=== PATIENT | female | born 2000 | race Caucasian/White ===

== ENCOUNTER 2024-10-31 18:10 | Emergency (ER) | payer BC, SELFPAY ==
--- OUTSIDE RECORDS SUMMARY | 2024-10-31 18:16 | XMS_ITS | Clinical Summary ---
Author Organization [facility] Address [address] [place] [address] Phone Care Team Providers Care Control Panel Builder Name Role Phone Audi Edwards MD Primary Care Provider [phone] Allergies No known active allergies Medications polyethylene glycol PO PACK Take 0.8 g/kg/day by mouth daily. Dissolve in 4-8 oz of liquid. Active ampicillin (PRINCIPEN) 500 MG Capsule 12/21/2018 Active Active Problems Problem Noted Date Diagnosed Date Vesicoureteral reflux 03/01/2012 Nocturnal enuresis 03/01/2012 Immunizations Immunization Administration Dates Next Due Influenza Vaccine greater than 3 yrs 03/31/2013 Family History Medical History Relation Name Comments Kidney Stones Father Heart Attack Maternal Grandfather Hypertension Maternal Grandfather Kidney Stones Paternal Grandfather Nocturnal Enuresis Neg Hx Renal Failure Neg Hx Urinary Tract Infections Neg Hx Relation Name Status Comments Father Alive Maternal Grandfather Alive Maternal Grandmother Alive Mother Alive Paternal Grandfather Alive Paternal Grandmother Alive Social History Tobacco Use Types Packs/Day Years Used Date Smoking Tobacco: Never Smokeless Tobacco: Never Tobacco Cessation:Counseling Given: No Alcohol Use Standard Drinks/Week Comments Not Asked 0 (1 standard drink = 0.6 oz pur e alcohol) Comments No Sex and Gender Information Value Date Recorded Sex Assigned at Not on file 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 Gender Identity Not on file Sexual Orientation Not on file Last Filed Vital Signs Vital Sign Reading Time Taken Comments Blood Pressure 110/71 01/04/2019 4:40 PM CDT Pulse 66 01/04/2019 4:40 PM CDT Temperature 36.8 C (98.2 F) 01/04/2019 4:40 PM CDT Respiratory Rate 18 01/04/2019 4:40 PM CDT Oxygen Saturation 99% 01/04/2019 4:40 PM CDT Inhaled Oxygen Concentration - - Weight 63.5 kg (140 lb) 01/04/2019 4:40 PM CDT Height 162.6 cm (5' 4) 04/05/2017 9:25 AM DETENTION SERGEANT Body Mass Index - - Plan of Treatment Health Maintenance Due Date Last Done Comments Hepatitis C Virus (HCV) Screening 2002 TdaP Immunization 2002 Meningococcal B Immunization (1 of 2 - Standard) 2018 Hepatitis B Immunization (1 of 3 - 19+ 3-dose series) 2021 Pap Smear 09/21/2023 Influenza Immunization (#1) 12/27/202308/2012, 04/01/2012 SARS-COV-2 Immunization ( - 2023- season) 2023 12/11/2020, 11/20/2020 Respiratory Syncytial Virus (RSV) Immunization (Adult) (1 - 1-dose 75+ series) 2077 Measles Mumps Rubella (MMR) Immunization Discontinued 04/14/2012 Human Papillomavirus (HPV) Immunization Completed 10/23/2017, 11/13/2016 Meningococcal Immunization (ACWY) Completed 12/07/2018 Pneumococcal Immunization Combined Aged Out No longer eligible based on patient's age to complete this topic Rotavirus Immunization Aged Out No lo nger eligible based on patient's age to complete this topic Insurance Care Teams Control Panel Builder Relationship Specialty Start Date End Date Audi Edwards MD [address] [place] [address] PCP - General Pediatrics 05/19/13
--- OUTSIDE RECORDS SUMMARY | 2024-10-31 18:16 | XMS_ITS | Continuity of Care Document ---
Author Organization [facility] Address [address] [place] [address] Phone Care Team Providers Care Client Technologies Analyst Name Role Phone Tomasz Crump OD Unavailable Unavailable Allergies, Adverse Reactions, Alerts Substance Reaction Status Criticality No Known Drug Allergies Active No I nformation Medications Medication Instructions Dosage Effective Dates (start - stop) Status Comments MULTIVITAMINS WITH IRON (unknown strength) Not Available - No Longer Active Procedures Procedure Date EYE EXAM, EXISTING PATIENT VISION REFRACTION NO UPDATE EYE EXAM, EXISTING PATIENT VISION REFRACTION NO UPDATE EYE EXAM, EXISTING PATIENT VISION REFRACTION OPTIONAL UPDATE EYE EXAM, NEW PATIENT VISION REFRACTION NO UPDATE Advance Directives Directive Yes / No Effective Date File Name No Information Encounters Encounter Description Practice Location Reason(s) For Visit Diagnoses Date Provider Providers Copied on Encounter [facility], [facility], [address] [place] [address], [id number], [place] tel:[phone] [facility] no problems with vision and no complaints (chief complaint) Encounter for examination of eyes and vision without abnormal findings Theron Tolbert. [address] [place] [address], [id number], . tel:[phone] [facility], [address] [place] [address], [id number], tel:[phone] [facility] Examination of eyes and vision Theron Tolbert. [address] [place] [address], [id number], . tel:[phone] [facility], [address] [place] [address], [id number], tel:[phone] [facility] Examination of eyes and vision Theron Tolbert. [address] [place] [address], [id number], . tel:[phone] [facility], [address] [place] [address], [id number], tel:[phone] [facility] No Information Theron Tolbert. [address] [place] [address], [id number], [place]. tel:[phone], [id number], tel:[phone] [facility] No Information Theron Tolbert. [address] [place] [address], [id number], . tel:[phone] Family History Family Member Type Diagnosis Age At Onset Problem (finding) No Family hist ory of Macular Degeneration Problem (finding) No Family history of Gl aucoma Problem (finding) No Family history of Re spiratory Disease Grandfather Problem (finding) cataract Grandfather Problem (finding) Heart Disease grandparents Problem (finding) HBP Problem (finding) No Family history of Re tinal Disorders Problem (finding) No Family history of St roke Grandfather Problem (finding) Diabetes mellitus Problem (finding) No Family history of As thma Grandmother Problem (finding) Arthritis Problem (finding) No Family history of St rabismus Payers Payer name Insurance type Covered alliance party ID Usha cespedes(s) No Information Social History Type Description Quantity Date Captured Comments Alcohol Use Details Unknown Caffeine Use Details Unknown Tobacco Use Status Never smoked tobacco 2016 Smoking Status Never smoker Non-Smoking Tobacco Use Details : No Details Available : No Details Available Sex Female Chief Complaint And Reason For Visit From encounter dated '10/07/2016 10:00'. no problems with vision and no complaints (chief complaint). Description: The 16 Year old female presents for evaluation of no problems with vision and no complaints in the right eye and left eye since last exam. It affects both near and far vision. It occurs constantly. The condition is stable. The patient denies pain or discomfort. Pt does not use any eye gtts or eye medications. Reason For Referral Reason For Referral No Information History Of Present Illness Encounter Date Complaint History Of Prese nt Illness no problems with vis ion and no complaints The 16 Year old female presents for evaluation of no problems with vision and no complaints in the right eye and left eye since last exam. It affects both near and far vision. It occurs constantly. The condition is stable. The patient denies pain or discomfort. Pt does not use any eye gtts or eye medications. Functional Status Date Functional Assessmen t No Information Instructions Date Instruction Additional Infor edna Return in 2 years wi th [facility] for Refract T & D. Related to Encounter for examination of eyes and vision without abnormal findings Impression/Plan - VA good, no need for gls Rx. Eyes look healthy and OU work well together. Pt doing well. Related to Encounter for examination of eyes and vision without abnormal findings Follow up - Return i n 2 years with [facility] for Refract T & D. Related to Encounter for examination of eyes and vision without abnormal findings - Return in 2 years with [facility] for Ref T & D. Related to Healthy Eyes Healthy Eyes OU. Con dition: established, stable. - Eyes look healthy. Vision is good. No need for gls rx today. Continue with yearly eye exams or TCI sooner if having problems. Educational materials provided:none needed. Related to Healthy Eyes - Return in 2 years with [facility] for Ref T & D. Related to Healthy Eyes Healthy Eyes OU. Con dition: established, stable. - OU healthy. No need for glasses. Related to Healthy Eyes Assessments Type Assessment Date assessment Encounter for examin ation of eyes and vision without abnormal findings impression Encounter for examin ation of eyes and vision without abnormal findings: Z01.00. OU. Status: Chronic. Patient Care Teams Name Effective Dates (start - stop) Status Members No Information
--- OUTSIDE RECORDS SUMMARY | 2024-10-31 18:16 | XMS_ITS | Patient Health Record ---
Author Organization [facility] Address [address] [place] [address] Care Team Providers Care Case Checker Name Role Phone MATIAS HARPER Unavailable [phone] Allergies No Known Allergies Reason For Referral No Information Medications Medication SIG (Take, Route, Fr equency, Duration) Notes Start Date End Date Status Tretinoin 0.025 % apply to the affecte d area(s) by topical route once daily at bedtime External 1 Active Plan Of Treatment No Information Insurance Providers Payer Name Payer Address Payer Phone Subscriber Number Group Number Insured Name Patient Relationship to Insured Coverage Start Date Coverage End Date [employer] [address] [place] [address] [phone] Ally Arciniega Self - patient is the insured [facility] [address] [place] [address] [id number] Ally Arciniega Self - patient is the insured Medical (General) History Medical History History ICD Code Acne; Ureteral reflux: as a baby - resolved;
[2024-10-31 18:20] VITALS: BP 133/80; PULSE 85; RESP 16; TEMP 36.4; O2SAT 100
[2024-10-31 18:27] LABS: EDUAAPPEAR Clear; EDUABILI Negative (Negative); EDUABLOOD Negative (Negative); EDUACOLOR1 Yellow; EDUAGLUCOSE Negative (Negative); EDUAKETONE Negative (Negative); EDUALEUKO Trace (Negative); EDUANITRATE Negative (Negative); EDUAPH 7.0; EDUAPROTEIN Negative (Negative); EDUASPGRAVITY 1.015; EDUAUROBILI 0.2
[2024-10-31 18:28] LABS: BEDSIDEPREGUCG Negative (Negative)
--- NOTE | 2024-10-31 18:28 | ED_ITS ---
HPI - General Adult General Chief complaint: Urogenital-Female Stated complaint: UTI History of Present Illness HPI narrative: Ally Arciniega is a 24 y/o female who presents today with complaints of one day of urinary symptoms of dysuria/urgency and frequency. Denies fever/chills/flank macie n/ abdominal pain Related Data Home Medications ?Medication ?Instructions ?Recorded ?Confirmed ?Last Taken ?Type drospirenone 3 mg-ethinyl tablet 10/31/24 Unknown History estradiol 0.02 mg tablet Allergies Allergy/AdvReac Type Severity Reaction Status Date / Time No Known Allergies Allergy Verified 10/31/24 18:26 Review of Systems Review of Systems: All systems reviewed & are unremarkable except as noted in HPI and below Exam Narrative: GENERAL: Well-appearing, well-nourished, and in no acute distress. HEAD: Normocephalic, atraumatic. EYES: PERRLA and EOMI. ENT: Nares clear, no rhinorrhea or epistaxis. Mucous membranes moist. Oropharynx without tonsillar hypertrophy exudate or other lesions. NECK: Supple. No adenopathy or masses. No carotid bruits or JVD CHEST: Clear to auscultation. No respiratory distress. No wheezes rales or rhonchi HEART: Regular rate and rhythm. Normal peripheral pulses. ABDOMEN: Soft, nontender, nondistended, normal active bowel sounds. EXTREMITIES: Normal range of motion. No edema. SKIN: Warm, dry, no rash. NEURO: No focal deficits. Alert and oriented x3. PSYCH: Normal mood and affect. Course Course Level of Care: Express Care Visit Vital Signs Vital signs: Vital Signs Temperature 36.4 C 10/31/24 18:20 Pulse Rate 85 10/31/24 18:20 Respiratory Rate 16 10/31/24 18:20 Blood Pressure 133/80 10/31/24 18:20 Pulse Oximetry 100 10/31/24 18:20 Oxygen Delivery Room Air 10/31/24 18:20 Temperature 36.4 C 10/31/24 18:20 Pulse Rate 85 10/31/24 18:20 Respiratory Rate 16 10/31/24 18:20 Blood Pressure 133/80 10/31/24 18:20 Pulse Oximetry 100 10/31/24 18:20 Oxygen Delivery Room Air 10/31/24 18:20 Medical Decision Making [facility] Narrative Medical decision making narrative: 24 year-old patient presenting with urinary symptoms consistent with UTI. Urinalysis is obtained and positive for signs of infection. Urine culture sent. test is negative. Patient started on Macrobid and strongly advised to return for any increasing or worsening pain, fevers or vomiting. They expressed understanding of instructions and is discharged in stable condition. Procedures: Pulse oximetry interpretation - not hypoxic. Review of medical records. DISPOSITION: Discharged home in stable condition. IMPRESSION: 1. Acute uncomplicated cystitis. Medical Records Medical records reviewed: Yes I reviewed the external patient's medical records. Vital Signs Vital Signs: Vital Signs Temperature 36.4 C 10/31/24 18:20 Pulse Rate 85 10/31/24 18:20 Respiratory Rate 16 10/31/24 18:20 Blood Pressure 133/80 10/31/24 18:20 Pulse Oximetry 100 10/31/24 18:20 Oxygen Delivery Room Air 10/31/24 18:20 Temperature 36.4 C 10/31/24 18:20 Pulse Rate 85 10/31/24 18:20 Respiratory Rate 16 10/31/24 18:20 Blood Pressure 133/80 10/31/24 18:20 Pulse Oximetry 100 10/31/24 18:20 Oxygen Delivery Room Air 10/31/24 18:20 Vitals reviewed by me Lab Data Lab results reviewed: Yes I reviewed the patient's lab results. Labs: Lab Results 10/31/24 Range/Units 18:25 POC Urine Color Yellow POC Urine Clarity Clear POC Urine pH 7.0 POC Ur Specif Foxworth 1.015 POC Urine Protein Negative (Negative) POC Ur Glucose (UA) Negative (Negative) POC Urine Ketones Negative (Negative) POC Urine Blood Negative (Negative) POC Urine Nitrite Negative (Negative) POC Urine Bilirubin Negative (Negative) POC Urine Urobilinogen 0.2 POC U Leukocyte Esteras Trace (Negative) POC Urine HCG, Qual Negative (Negative) Discharge Plan Discharge Clinical Impression: Urinary tract infection Qualifiers: Urinary tract infection type: acute cystitis Hematuria presence: without hem aturia Qualified Code(s): N30.00 - Acute cystitis without hematuria Patient Disposition: Home Condition: Stable Instructions: Antibiotic Form Additional Instructions: Start taking the antibiotic as ordered push hydration, drinking plenty of fluids Tylenol or motrin for pain Follow up with your PCP in 1 week to ensure you are improved Patient Language: Frisian Prescriptions: New nitrofurantoin monohyd/m-cryst [Macrobid] 100 mg capsule 100 mg PO Q12H 5 Days Qty: 10 0RF Rx Instructions: must administer with a meal/food No Action drospirenone-ethinyl estradiol 3-0.02 mg tablet Follow-up/Referrals: PHYSICIAN,DIE PRESSER [Primary Care Provider] - Time of Disposition: 18:29
== END 2024-10-31 18:30 | disposition home or self-care (01) ==
PROVIDERS: Emergency Provider Nurse Practitioner Family
DX: N30.00 Acute cystitis without hematuria (principal)
CPT/HCPCS: 81003; 81025; 87086; 99203; G0463

== ENCOUNTER 2025-02-05 17:02 | Emergency (ER) | payer BC, SELFPAY ==
[2025-02-05 17:14] VITALS: BP 121/77; PULSE 104; RESP 18; TEMP 37.6; O2SAT 100
--- NOTE | 2025-02-05 17:25 | ED.URI ---
HPI - URI/Sore Throat General Chief Complaint: Upper Respiratory Infection Stated Complaint: Sore Throat/Congestion Time Seen by Provider: 02/05/25 17:25 Source: patient and RN notes reviewed Mode of arrival: ambulatory Limitations: no limitations History of Present Illness HPI Narrative: 24-year-old female presents with concern for sore throat, nasal congestion, rhinorrhea, cough that started last night. She reports she has flu vaccine last week. Reports low-grade fever, body aches and chills. She has been alternating Tylenol and ibuprofen. MD elicited complaint: sore throat and nasal congestion Related Data Home Medications ?Medication ?Instructions ?Recorded ?Confirmed ?Last Taken ?Type drospirenone 3 mg-ethinyl tablet 10/31/24 Unknown History estradiol 0.02 mg tablet Allergies Allergy/AdvReac Type Severity Reaction Status Date / Time No Known Allergies Allergy Verified 02/05/25 17:14 Review of Systems Review of Systems: CONSTITUTIONAL: Reports malaise, chills, or fever. EYES: Denies visual changes, redness, or discharge. ENT: Reports rhinorrhea, congestion, and sore throat. CARDIOVASCULAR: Denies chest pain, palpitations, or edema. RESPIRATORY: Reports cough. Denies dyspnea. GASTROINTESTINAL: Denies abdominal pain, nausea, vomiting, diarrhea SKIN: Denies rash or itching. MUSCULOSKELETAL: Reports myalgia. NEUROLOGIC: Denies headache. All systems reviewed & are unremarkable except as noted in HPI and below PMFSH Comments At time of signature, agree with nursing past medical, surgical, social and family history. There is no relevant family history pertinent to the presenting complaint Exam Narrative: GENERAL: Nontoxic-appearing, well-nourished, and in no acute distress. HEAD: Normocephalic EYES: PERRLA, conjunctivae clear ENT: Nares clear. Mucous membranes moist. TM pearly davenport with dull light reflex bilaterally; no tragal tenderness. Oropharynx not erythematous without lesions. Tonsils not enlarged and without exudate, no drooling, no hoarseness, no trismus, uvula midline. NECK: Supple. No lymphadenopathy CHEST: Clear to auscultation, breath sounds equal. No wheezing, rhonchi, rales, or stridor. No respiratory distress, speaks in full sentences. HEART: Regular rate and rhythm. No murmur heard. SKIN: Warm, dry, no rash. NEURO: Alert and oriented x3. PSYCH: Normal mood and affect Course Course Emergency Course: Patient is aware of diagnosis, understands and agrees to treatment plan. Anticipatory guidance given. Patient agrees to follow-up as directed and is aware of reasons to seek care at the emergency department. Portions of this record may have been created with voice recognition software Level of Care: Express [facility] Visit Vital Signs Vital signs: Vital Signs Temperature 99.6 F 02/05/25 17:14 Pulse Rate 104 H 02/05/25 17:14 Respiratory Rate 18 02/05/25 17:14 Blood Pressure 121/77 02/05/25 17:14 Pulse Oximetry 100 02/05/25 17:14 Temperature 99.6 F 02/05/25 17:14 Pulse Rate 104 H 02/05/25 17:14 Respiratory Rate 18 02/05/25 17:14 Blood Pressure 121/77 02/05/25 17:14 Pulse Oximetry 100 02/05/25 17:14 Reviewed. MDM - URI/Sore Throat MDM Narrative Medical decision making narrative: Differential diagnosis considered: Aguillon virus, strep pharyngitis, allergic rhinitis, upper respiratory tract infection, sinusitis, rhinosinusitis, nasopharyngitis. viral pharyngitis, otitis media, otitis externa, pneumonia, bronchitis, viral cough syndrome, viral syndrome, and influenza. Exam findings show no acute concerns or changes; patient is non-toxic appearing and is in no distress. Patient is appropriate for outpatient treatment and follow-up. Lab Data Attestation: I reviewed the patient's lab results. Critical Care Time Critical Care Time Critical Care Time: No Discharge Plan Discharge Clinical Impression: Upper respiratory infection Patient Disposition: Home Condition: Stable Instructions: Upper Respiratory Infection (ED) Additional Instructions: Your rapid COVID and flu tests are negative Your rapid strep swab was negative today at [facility]. A throat culture will be sent to the laboratory for further testing. If the test is positive, you will receive a phone call within 48 hours and an appropriate antibiotic will be initiated at that time. Your symptoms are likely due to a viral illness, which is not treated with antibiotics. Viral symptoms can be present for up to a few weeks. -Alternate Tylenol and Motrin per package directions for fever or pain. -Antihistamine medication such as Benadryl at night and Zyrtec during the day can help improve symptoms. -Eat and drink things that are easy to swallow, like tea or soup, or popsicles to suck on. -Oral rinses such as: Salt water gargles and/or may use topical anesthetic (eg. Chloraseptic spray) or lozenges to relieve dryness or throat pain). -Frequent hand washing or hand cigarette packer is one of the best ways to prevent spread of infection. -Follow up with primary care provider in 2-3 days if condition is not improving; or seek ER visit if you have trouble breathing, cannot drink enough fluids, have muffled voice, difficulty opening your mouth, or severe swelling. Patient Language: Bulgarian Prescriptions: New pseudoephedrine HCl [12 Hour Decongestant] 120 mg tablet extended release 120 mg PO Q12H PRN (Reason: nasal congestion) Qty: 20 0RF dextromethorphan-guaifenesin [Mucinex DM] 60-1,200 mg tablet extended release 12 hr 1 tablet PO Q12H Qty: 12 0RF No Action drospirenone-ethinyl estradiol 3-0.02 mg tablet nitrofurantoin monohyd/m-cryst [Macrobid] 100 mg capsule 100 mg PO Q12H 5 Days Qty: 10 0RF Rx Instructions: must administer with a meal/food Follow-up/Referrals: PHYSICIAN,ONLINE CONTENT EDITOR [Primary Care Provider, Internal Medicine] Stand Alone Forms: Work/School Release IP Time of Disposition: 17:46
[2025-02-05 17:29] LABS: EDSTREPNEGPOS1 Negative (Negative)
[2025-02-05 17:49] LABS: EDCOVIDSCREEN Negative (Negative); EDINFLUASCREEN Negative (Negative); EDINFLUBSCREEN Negative (Negative)
== END 2025-02-05 17:48 | disposition home or self-care (01) ==
PROVIDERS: Emergency Provider Nurse Practitioner
DX: J02.9 Acute pharyngitis, unspecified (principal); J06.9 Acute upper respiratory infection, unspecified
CPT/HCPCS: 87081; 87426; 87804; 87880; 99213; G0463